=== PATIENT | female | born 1985 | race Caucasian/White ===

== ENCOUNTER 2017-08-24 08:12 | Emergency (ER) | payer OTHER ==
[~2017-08-24] VITALS: Ht 154.9 cm; Wt 68.0 kg
[2017-08-24 08:14] VITALS: Ht 154.9 cm; Wt 68.0 kg
[2017-08-24 11:21] VITALS: BP 110/62
== END 2017-08-24 11:21 | disposition home or self-care (01) ==
LOC: ED 08:12
DX: R51 Headache (principal); R11.2 Nausea with vomiting, unspecified; H53.149 Visual discomfort, unspecified; E89.0 Postprocedural hypothyroidism; Z88.0 Allergy status to penicillin
CPT/HCPCS: J3030